=== PATIENT | female | born 1985 | race American Indian/Alaskan Native ===

== ENCOUNTER 2016-07-08 14:26 | Emergency (ER) | payer MEDICAID ==
[2016-07-08] MEDS ORDERED: ZOFRAN IV ONE (15:24)
--- NOTE | 2016-07-08 15:24 | Emergency Department Report ---
Chief Complaint: Nausea/Vomiting/Diarrhea Stated Complaint: /DEHYDRATION - HPI History of Present Illness: 7-week Patient c/o dehydration x 2 weeks. States sent here by her OB for IV fluids as she is having nausea, vomiting, weakness. Denies vaginal bleed. LMP 05/15/16 - Exam Vital Signs: Vital Signs 07/08/16 14:51 Temperature 98.8 F Pulse Rate 64 Respiratory 16 Rate O2 Sat by Pulse 100 Oximetry Physical Exam: General: NAD. MSE screening note: Focused history and physical exam performed. Due to findings the following was ordered: ED Medical Decision Making - Medical Decision Making Patient to see MD in main ED. ED Disposition for MSE Condition: Stable
[2016-07-08] MEDS ORDERED: NACL 0.9% 1000 ML 1,000 ML IV ONE (15:25)
[2016-07-08 15:53] LABS: Basophils % (Auto) 0.4 % (0.0-1.8); Eosinophils % (Auto) 1.9 % (0.0-4.3); Hematocrit 39.5 % (30.3-42.9); Hemoglobin 12.9 gm/dl (10.1-14.3); Mean Corpuscular HGB Conc 33 % (30-34); Mean Corpuscular Hemoglobin 27 pg (28-32); Mean Corpuscular Volume 83 fl (79-97); Platelet Count 256 K/mm3 (140-440); Red Blood Count 4.75 M/mm3 (3.65-5.03); Red Cell Distribution Width 13.2 % (13.2-15.2); White Blood Count 12.5 K/mm3 (4.5-11.0)
[2016-07-08 16:19] LABS: Alanine Aminotransferase 18 units/L (7-56); Albumin 4.2 g/dL (3.9-5); Albumin/Globulin Ratio 1.5 %; Alkaline Phosphatase 99 units/L (35-129); BUN/Creatinine Ratio 11.66; Bilirubin,Total 0.4 mg/dL (0.1-1.2); Blood Urea Nitrogen 7 mg/dL (7-17); Carbon Dioxide 26 mmol/L (22-30); Chloride 97.7 mmol/L (98-107); Glucose 96 mg/dL (65-100); Potassium 4.3 mmol/L (3.6-5.0); Sodium 135 mmol/L (137-145)
[2016-07-08 16:25] LABS: Anion Gap 16 mmol/L
[2016-07-09] MEDS ORDERED: NACL 0.9% 1000 ML 1,000 ML IV ONE (10:52)
[2016-07-09] MEDS ORDERED: ZOFRAN ONE (11:47)
--- NOTE | 2016-07-09 13:19 | Ultrasound Report ---
OB ultrasound: Endovaginal and transabdominal imaging demonstrates an anterior uterus measuring 6 x 6.7 x 12.8 cm. The myometrium is unremarkable. There is an endometrial sac containing a yolk sac as well as a pole. A pole length is 11.3 mm equivalent to a 7 week 2 day gestation. There is heart motion of 149 beats per minute. No intrauterine complication identified. The left ovary measures 3.6 cm and the right ovary measures 4.1 cm. Both contain numerous small follicles. No free fluid. Impressions: Viable, morocho IUP.
--- NOTE | 2016-07-09 14:04 | Emergency Department Report ---
HPI - General Chief Complaint: Nausea/Vomiting/Diarrhea Time Seen by Provider: 07/09/16 10:50 - HPI HPI: The patient is a 30-year-old female , EGA 7 weeks, who presents for evaluation of lightheadedness and vomiting. The patient states that for the past 2 weeks she has experienced progressive severe nausea and vomiting, worse in the mornings and associated with one to 2 days of lightheadedness, severe, exacerbated with position changes, improved with lying down and resting. The patient also reports mild cramping lower abdominal pain, on and off. The patient denies fever, chills, night sweats, diarrhea, blood in the stool, dark tarry stool, dysuria, hematuria, flank pain, vaginal bleeding, genital discharge , inability to pass flatus. She states that she has established care. ED Past Medical Hx - Past Medical History Previous Medical History?: No - Surgical History Past Surgical History?: Yes Hx Appendectomy: Yes (Age 9 years) - Social History Smoking Status: Never Smoker Substance Use Type: None - Medications Home Medications: Home Medications Medication Instructions Recorded Confirmed Last Taken Type Ibuprofen [Motrin] 600 mg PO Q4-6H PRN 09/29/14 09/29/14 1 Day Ago History Ibuprofen [Motrin] 600 mg PO Q8H PRN #30 tablet 09/29/14 Unknown Rx traMADol [Ultram] 50 mg PO Q6HR PRN #14 tablet 09/29/14 Unknown Rx Sulfamethoxazole/Trimethoprim 1 each PO BID #14 tablet 09/30/14 Unknown Rx [Bactrim Ds] Ondansetron [Zofran TAB] 4 mg PO Q8HR PRN #20 tablet 07/09/16 Unknown Rx ED Review of Systems ROS: Stated complaint: /DEHYDRATION Other details as noted in HPI Constitutional: denies: fever ENT: denies: throat or neck pain Respiratory: denies: cough, shortness of breath Cardiovascular: denies: chest pain Endocrine: denies unexplained weight loss or gain Gastrointestinal: reports abdominal pain, nausea, vomiting Genitourinary: denies: dysuria Musculoskeletal: denies: leg swelling Skin: denies: rash Neurological: denies: headache Hematological/Lymphatic: denies: easy bleeding or easy bruising Psych: denies sadness or hopelessness Physical Exam - Physical Exam Vital Signs: Vital Signs 07/08/16 07/09/1607/09/17 14:51 03:36 11:00 Temperature 98.8 F 97.8 F 98.1 F Pulse Rate 64 97 H 75 Respiratory 16 20 18 Rate Blood Pressure 104/65 107/68 [Right] O2 Sat by Pulse 100 100 100 Oximetry 07/09/16 12:13 Temperature Pulse Rate Respiratory 16 Rate Blood Pressure [Right] O2 Sat by Pulse 100 Oximetry Physical Exam: General: well-nourished, well-developed, no acute distress Head: Normocephalic, atraumatic Eyes: normal sclera ENT: Mucous membranes are pale and dry Neck: No neck stiffness, no cervical adenopathy Respiratory: Breath sounds equal bilaterally, no wheezing, rales, or rhonchi Cardio: S1 and S2 present, no murmurs, rubs, gallops, capillary refill is delayed Abdomen: Normoactive bowel sounds, soft abdomen, suprapubic tenderness to palpation present, no rigidity, no guarding or rebound tenderness Musc: No pitting edema Skin: No rash Neuro: no facial drooping, normal speech Psych: Normal affect ED Course Vital Signs 07/08/16 07/09/16 07/09/16 14:51 03:36 11:00 Temperature 98.8 F 97.8 F 98.1 F Pulse Rate 64 97 H 75 Respiratory 16 20 18 Rate Blood Pressure 104/65 107/68 [Right] O2 Sat by Pulse 100 100 100 Oximetry 07/09/16 12:13 Temperature Pulse Rate Respiratory 16 Rate Blood Pressure [Right] O2 Sat by Pulse 100 Oximetry ED Medical Decision Making - Lab Data Result diagrams: 07/08/16 15:45 07/08/16 15:45 - Medical Decision Making The patient was seen and examined by myself. The patient is placed on a lunchroom monitor and continuous pulse ox. On initial evaluation, the patient was found to be in no distress. Evaluation orders were placed. The patient is given 1 L normal saline fluid bolus for treatment of dehydration, a tablet of Tylenol for her pain, and IV Zofran for her nausea. Lab results reveal elevated hCG 62,000, and otherwise lab results were unremarkable. Ultrasound of the pelvis reveals a live intrauterine . The patient was reevaluated and reported that their symptoms were markedly improved. The patient is given a by mouth challenge which she tolerates without vomiting. The patient is stable for discharge with outpatient follow-up. The patient is given follow-up and return instructions. The patient expressed understanding and agreed with the plan. The patient is discharged in stable condition. Critical care attestation.: If time is entered above; I have spent that time in minutes in the direct care of this critically ill patient, excluding procedure time. ED Disposition Clinical Impression: Dehydration, Nausea and vomiting during Disposition: DISCHARGED TO HOME OR SELFCARE Is pt being admited?: No Does the pt Need Aspirin: No Condition: Stable Instructions: Acute Nausea and Vomiting (ED), Morning Sickness (ED) Referrals: CRISTAL GILMORE MD [Primary Care Provider] - 3-5 Days Time of Disposition: 12:15
[2016-07-09 14:06] VITALS: BP 110/68
[2016-07-09] MEDS ORDERED: TYLENOL PO ONE (14:06)
== END 2016-07-09 14:54 | disposition home or self-care (01) ==
LOC: ED 14:26
DX: O21.1 Hyperemesis gravidarum with metabolic disturbance (principal); R11.0 Nausea; Z90.49 Acquired absence of other specified parts of digestive tract; Z3A.01 Less than 8 weeks gestation of pregnancy
CPT/HCPCS: 36415; 76801; 76817; 80053; 83690; 84702; 85025; 96361; 96374; 99284; J2405; J7030

== ENCOUNTER 2016-12-21 12:51 | Outpatient (CLI) | payer MEDICAID ==
[2016-12-21] MEDS ORDERED: LACTATED RINGERS 500 ML IV ONE (13:02)
[2016-12-21 13:24] LABS: Bilirubin,Urine NEG (Negative); Blood,Urine NEG (Negative); Ketones,Urine NEG (Negative); Leukocyte Esterase,Urine NEG (Negative); Mucus,Urine FEW /HPF; Nitrite,Urine NEG (Negative); Protein,Urine <15 mg/dL mg/dL (Negative); Urobilinogen,Urine < 2.0 mg/dL (<2.0)
[2016-12-21 14:13] VITALS: BP 114/73
== END 2016-12-21 14:30 | disposition home or self-care (01) ==
LOC: TRG 12:51
PROVIDERS: ATTEND Obstetrics & Gynecology Gynecology
DX: Z34.93 Encounter for supervision of normal pregnancy, unspecified, third trimester (principal); Z3A.31 31 weeks gestation of pregnancy
CPT/HCPCS: 59025; 81001

== ENCOUNTER 2017-01-14 01:26 | Outpatient (CLI) | payer MEDICAID ==
[2017-01-14 01:39] VITALS: BP 124/80
[2017-01-14] MEDS ORDERED: LACTATED RINGERS 1,000 ML IV ONE (02:06)
[2017-01-14] MEDS ORDERED: LACTATED RINGERS 1,000 ML ONE (02:06)
[2017-01-14 02:55] LABS: Bacteria,Urine 4+ /HPF (Negative); Bilirubin,Urine NEG (Negative); Blood,Urine NEG (Negative); Ketones,Urine NEG (Negative); Leukocyte Esterase,Urine SM (Negative); Nitrite,Urine NEG (Negative); Protein,Urine <15 mg/dL mg/dL (Negative); Urobilinogen,Urine < 2.0 mg/dL (<2.0)
[2017-01-14] MEDS ORDERED: BRETHINE SUB-Q ONE (03:49)
== END 2017-01-14 05:00 | disposition home or self-care (01) ==
LOC: TRG 01:26
PROVIDERS: ATTEND Obstetrics & Gynecology
DX: O47.03 False labor before 37 completed weeks of gestation, third trimester (principal); Z3A.34 34 weeks gestation of pregnancy
CPT/HCPCS: 81001; 96360; 96361; J3105; J7120

== ENCOUNTER 2017-02-07 21:00 | Outpatient (CLI) | payer MEDICAID ==
[2017-02-10 01:23] VITALS: BP 129/78
== END 2017-02-07 22:03 | disposition home or self-care (01) ==
LOC: TRG 21:00
PROVIDERS: ATTEND Obstetrics & Gynecology
DX: O47.1 False labor at or after 37 completed weeks of gestation (principal); Z3A.38 38 weeks gestation of pregnancy

== ENCOUNTER 2017-02-09 22:13 | Observation (INO) | payer MEDICAID ==
[2017-02-10] MEDS ORDERED: LACTATED RINGERS 1,000 ML ONE (02:49)
[2017-02-10] MEDS ORDERED: LACTATED RINGERS 1,000 ML IV SCH (03:00)
[2017-02-10] MEDS ORDERED: VISTARIL PO ONE (04:43)
[2017-02-17 04:40] VITALS: BP 159/78
== END 2017-02-10 04:58 | disposition home or self-care (01) ==
LOC: TRG 22:13 → LD 02-10 02:21 → INTOOBSV 02-10 02:21
PROVIDERS: ADMIT Obstetrics & Gynecology Gynecology; ATTEND Obstetrics & Gynecology Gynecology
DX: O62.9 Abnormality of forces of labor, unspecified (principal); Z3A.38 38 weeks gestation of pregnancy
CPT/HCPCS: G0378; J7120; 96360; Q0177

== ENCOUNTER 2017-02-15 14:51 | Inpatient (IN) | payer MEDICAID ==
[2017-02-15 16:14] LABS: Hematocrit 29.8 % (30.3-42.9); Hemoglobin 9.5 gm/dl (10.1-14.3); Mean Corpuscular HGB Conc 32 % (30-34); Mean Corpuscular Volume 76 fl (79-97); Platelet Count 176 K/mm3 (140-440); Red Blood Count 3.91 M/mm3 (3.65-5.03); Red Cell Distribution Width 15.6 % (13.2-15.2); White Blood Count 8.2 K/mm3 (4.5-11.0)
[2017-02-15 16:26] LABS: Mean Corpuscular Hemoglobin 24 pg (28-32)
[2017-02-15 16:37] LABS: Bacteria,Urine 1+ /HPF (Negative); Bilirubin,Urine NEG (Negative); Blood,Urine SM (Negative); Ketones,Urine NEG (Negative); Leukocyte Esterase,Urine NEG (Negative); Mucus,Urine FEW /HPF; Nitrite,Urine NEG (Negative); RBC,Urine < 1.0 /HPF (0.0-6.0); Urobilinogen,Urine < 2.0 mg/dL (<2.0); WBC,Urine < 1.0 /HPF (0.0-6.0)
[2017-02-15 16:38] LABS: Alanine Aminotransferase 48 units/L (7-56); Lactate Dehydrogenase 221 units/L (91-180); Uric Acid 6.3 mg/dL (3.5-7.6)
[2017-02-15] MEDS ORDERED: STADOL IV PRN (17:12)
[2017-02-15] MEDS ORDERED: BRETHINE SUB-Q PRN (17:12)
[2017-02-15] MEDS ORDERED: NARCAN 0.4 MG/1 ML IV PRN (17:12)
[2017-02-15] MEDS ORDERED: POLYCILLIN/NS 2 GM/100 ML 2 GM/100 ML BAG IV ONE (17:12)
[2017-02-15] MEDS ORDERED: PHENERGAN PO PRN (17:12)
[2017-02-15] MEDS ORDERED: ePHEDrine SULFATE IV PRN (17:12)
[2017-02-15] MEDS ORDERED: BRETHINE IVP PRN (17:12)
[2017-02-15] MEDS ORDERED: ZOFRAN IV PRN (17:12)
[2017-02-15] MEDS ORDERED: SUBLIMAZE IV PRN (17:12)
[2017-02-15] MEDS ORDERED: MINERAL OIL PO PRN (17:12)
[2017-02-15] MEDS ORDERED: XYLOCAINE 2% INFILTRATI ONE (17:12)
--- NOTE | 2017-02-15 17:21 | History and Physical Report ---
History of Present Illness Date of examination: 02/15/17 Date of admission: 02/15/17 14:52 Chief complaint: Early labor History of present illness: Pt is a 31yo BF EDC 02/19/17; EGA 39 3/7 weeks sent to L&D for evaluation of elevated BP's and dilated 4-5/70/V -2 She received care at [facility] since 6 weeks and course has been unremarkable. records are available, and GBS is positive. Past History Past Medical History: no pertinent history Past Surgical History: no surgical history SET [employer] History: herpes Family/Genetic History: none Social history: no significant social history, single - Obstetrical History Expected Date of Delivery: 02/19/17 Actual Gestation: 39 Week(s) 4 Day(s) : 2 Medications and Allergies Allergies Allergy/AdvReac Type Severity Reaction Status Date / Time No Known Allergies Allergy Verified 09/29/14 21:51 Home Medications Medication Instructions Recorded Confirmed Last Taken Type No Known Home Medications [No 02/07/17 02/07/17 Unknown History Reported Home Medications] Active Meds: Active Medications Butorphanol Tartrate (Stadol) 2 mg IV Q2H PRN PRN Reason: Pain , Severe (7-10) Ephedrine Sulfate (Ephedrine Sulfate) 10 mg IV Q2M PRN PRN Reason: Hypotension Stop: 02/15/17 17:17 Fentanyl (Sublimaze) 100 mcg IV Q2H PRN PRN Reason: Labor Pain Ampicillin Sodium (Polycillin/Ns 1 Gm/50 Ml) 1 gm in 50 mls @ 100 mls/hr IV Q4HR BRANDIE PRN Reason: Protocol Ampicillin Sodium (Polycillin/Ns 2 Gm/100 Ml) 2 gm in 100 mls @ 100 mls/hr IV ONCE ONE PRN Reason: Protocol Stop: 02/15/17 18:11 Lactated Ringer's (Lactated Ringers) 1,000 mls @ 125 mls/hr IV DIRECT BRANDIE Oxytocin/Sodium Chloride (Pitocin/Ns 20 Unit/1000ml Drip) 20 units in 1,000 mls @ 125 mls/hr IV DIRECT BRANDIE Oxytocin/Sodium Chloride (Pitocin/Ns 30 Unit/500ml) 30 units in 500 mls @ 1 mls /hr IV TITR BRANDIE; 1 MILLIUNITS/MIN PRN Reason: Protocol Oxytocin/Sodium Chloride (Pitocin/Ns 30 Unit/500ml) 30 units in 500 mls @ 4 mls /hr IV TITR BRANDIE PRN Reason: Protocol Lidocaine (Xylocaine 2%) 20 ml INFILTRATI ONCE ONE Stop: 02/15/17 17:13 Mineral Oil (Mineral Oil) 30 ml PO QHS PRN PRN Reason: Constipation Naloxone HCl (Narcan 0.4 Mg/1 Ml) 0.1 mg IV Q2MIN PRN PRN Reason: Res Rate </= 8 or 02 SAT < 92% Ondansetron HCl (Zofran) 4 mg IV Q8H PRN PRN Reason: Nausea And Vomiting Promethazine HCl (Phenergan) 25 mg PO Q6H PRN PRN Reason: Nausea And Vomiting Terbutaline Sulfate (Brethine) 0.25 mg SUB-Q ONCE PRN PRN Reason: Hyperstimulation/Hypertonicity Stop: 02/15/17 17:13 Terbutaline Sulfate (Brethine) 0.25 mg IVP ONCE PRN PRN Reason: Hyperstimulation/Hypertonicity Stop: 02/15/17 17:13 Review of Systems All systems: negative - Vital Signs Vital signs: Vital Signs Pulse BP Pulse Ox 81 142/72 98 02/15/17 15:23 02/15/17 15:23 02/15/17 15:23 Temp Pulse Resp BP Pulse Ox 74 134/68 98 02/15/17 16:38 02/15/17 16:38 02/15/17 15:38 - Physical Exam Breasts: Positive: deferred Cardiovascular: Regular rate Lungs: Positive: Clear to auscultation Abdomen: Positive: normal appearance Genitourinary (Female): Positive: normal external genitalia Vagina: Positive: normal moisture Uterus: Positive: enlarged Extremities: Positive: normal - Obstetrical FHR: category 1 Uterine Contraction Monitor Mode: External Cervical Dilatation: 4.5 (per nurse) Cervical Effacement Percentage: 70 (per nurse) station: -2 Uterine Contraction Pattern: Irregular Uterine Tone Measurement Phase: Contraction Uterine Contraction Intensity: Mild Results Result Diagrams: 02/15/17 15:10 02/15/17 15:10 Abnormal lab results 02/15/17 02/15/17 Range/Units 15:10 15:10 Hgb 9.5 L (10.1-14.3) gm/dl Hct 29.8 L (30.3-42.9) % MCV 76 L (79-97) fl MCH 24 L (28-32) pg RDW 15.6 H (13.2-15.2) % Creatinine 0.6 L (0.7-1.2) mg/dL Lactate Dehydrogenase 221 H (91-180) units/L All other labs normal. Assessment and Plan - Patient Problems (1) 39 weeks gestation of Onset Date: 02/15/17 Current Visit: Yes Status: Acute Plan to address problem: A: IUP @ 39 3/7 weeks in labor GBS Positive P: Admit to L&D for expectant vaginal delivery IV Ampicillin
[2017-02-15] MEDS ORDERED: PITOCin/NS 30 UNIT/500ML 30 UNITS/500 ML BAG IV SCH ×2 (18:00)
[2017-02-15] MEDS ORDERED: PITOCin/NS 20 UNIT/1000ML DRIP 20 UNITS/1,000 ML BAG IV SCH (18:00)
[2017-02-15] MEDS: LACTATED RINGERS 1,000 ML IV SCH (18:03)
[2017-02-15] MEDS: POLYCILLIN/NS 1 GM/50 ML 1 GM/50 ML BAG IV SCH (22:46)
[2017-02-16] MEDS: LACTATED RINGERS 1,000 ML IV SCH ×3 (01:43→21:31)
[2017-02-16] MEDS ORDERED: ePHEDrine SULFATE ONE (02:05)
[2017-02-16] MEDS: POLYCILLIN/NS 1 GM/50 ML 1 GM/50 ML BAG IV SCH ×5 (02:09→18:55)
[2017-02-16] MEDS ORDERED: ePHEDrine SULFATE IV PRN (03:02)
--- NOTE | 2017-02-16 03:02 | Anesthesia Consultation ---
Anesthesia Consult and Med Hx Date of service: 02/16/17 - Airway Anesthetic Teeth Evaluation: Good ROM Head & Neck: Adequate Mental/Hyoid Distance: Adequate Intubation Access Assessment: Probably Good - Pre-Operative Health Status ASA Pre-Surgery Classification: ASA2, Emergency Proposed Anesthetic Plan: Epidural, Spinal - Pulmonary Hx Asthma: No COPD: No Hx Pneumonia: No - Cardiovascular System Hx Hypertension: No - Central Nervous System Hx Seizures: No Hx Psychiatric Problems: No - Endocrine Hx Renal Disease: No Hx End Stage Renal Disease: No Hx Hypothyroidism: No Hx Hyperthyroidism: No - Hematic Hx Anemia: No Hx Sickle Cell Disease: No - Other Systems Hx Alcohol Use: No
[2017-02-16] MEDS: fentaNYL-BUPIV 2 MCG/ML-0.125% 200 MCG/100 ML BAG EPIDURAL SCH ×3 (03:33→18:55)
[2017-02-16] MEDS ORDERED: BENADRYL IV PRN (10:00)
--- NOTE | 2017-02-16 12:04 | Progress Note ---
Assessment and Plan - Patient Problems (1) 39 weeks gestation of Onset Date: 02/15/17 Current Visit: Yes Status: Acute Plan to address problem: A: IUP @ 39 4/7 weeks in labor GBS Positive P: Continue pitocin augmentation for expectant vaginal delivery AROM - clear fluid IV Ampicillin Subjective - Subjective Date of service: 02/16/17 Principal diagnosis: IUP @ 39 4/7 weeks Interval history: Pt is presently on pitocin 28mu/min and ye q 3-5 mins with epidural in place. No complaints. Patient reports: loss of fluid, movement normal, contractions, no new complaints, no vaginal bleeding Objective - Vital Signs Vital Signs: Vital Signs - 12hr 02/16/17 02/16/17 02/16/17 00:04 00:09 00:14 Temperature Pulse Rate 86 80 69 Respiratory Rate Blood Pressure O2 Sat by Pulse 99 100 100 Oximetry 02/16/17 02/16/17 02/16/17 00:19 00:24 00:29 Temperature Pulse Rate 66 74 74 Respiratory Rate Blood Pressure O2 Sat by Pulse 99 99 100 Oximetry 02/16/17 02/16/17 02/16/17 00:33 00:34 00:39 Temperature Pulse Rate 85 87 72 Respiratory Rate Blood Pressure O2 Sat by Pulse 67 L 100 99 Oximetry 02/16/17 02/16/17 02/16/17 00:44 00:49 00:54 Temperature Pulse Rate 72 71 69 Respiratory Rate Blood Pressure O2 Sat by Pulse 100 98 100 Oximetry 02/16/17 02/16/17 02/16/17 00:59 01:04 01:09 Temperature Pulse Rate 79 71 71 Respiratory Rate Blood Pressure O2 Sat by Pulse 98 100 99 Oximetry 02/16/17 02/16/17 02/16/17 01:13 01:14 01:19 Temperature Pulse Rate 75 73 98 H Respiratory Rate Blood Pressure O2 Sat by Pulse 93 100 98 Oximetry 02/16/17 02/16/17 02/16/17 01:24 01:29 01:34 Temperature Pulse Rate 82 69 69 Respiratory Rate Blood Pressure O2 Sat by Pulse 99 99 99 Oximetry 02/16/17 02/16/17 02/16/17 01:39 01:44 01:49 Temperature Pulse Rate 70 73 67 Respiratory Rate Blood Pressure O2 Sat by Pulse 98 100 98 Oximetry 02/16/17 02/16/17 02/16/17 01:54 02:00 02:05 Temperature Pulse Rate 75 83 84 Respiratory Rate Blood Pressure O2 Sat by Pulse 100 98 100 Oximetry 02/16/17 02/16/17 02/16/17 02:10 02:15 02:20 Temperature Pulse Rate 73 74 64 Respiratory Rate Blood Pressure O2 Sat by Pulse 100 100 100 Oximetry 02/16/17 02/16/17 02/16/17 02:25 02:30 02:35 Temperature Pulse Rate 71 72 73 Respiratory Rate Blood Pressure O2 Sat by Pulse 98 98 100 Oximetry 02/16/17 02/16/17 02/16/17 02:37 02:39 02:40 Temperature Pulse Rate 72 80 74 Respiratory Rate Blood Pressure 122/76 132/84 O2 Sat by Pulse 75 L 100 Oximetry 02/16/17 02/16/17 02/16/17 02:42 02:44 02:45 Temperature Pulse Rate 65 73 73 Respiratory Rate Blood Pressure 126/72 144/81 O2 Sat by Pulse 89 Oximetry 02/16/17 02/16/17 02/16/17 02:46 02:48 02:50 Temperature Pulse Rate 74 72 77 Respiratory Rate Blood Pressure 124/71 130/71 130/72 O2 Sat by Pulse 100 Oximetry 02/16/17 02/16/17 02/16/17 02:52 02:54 02:56 Temperature Pulse Rate 85 75 72 Respiratory Rate Blood Pressure 133/65 118/64 120/64 O2 Sat by Pulse Oximetry 02/16/17 02/16/17 02/16/17 02:58 03:01 03:02 Temperature Pulse Rate 71 81 81 Respiratory Rate Blood Pressure 119/65 O2 Sat by Pulse 71 L 79 L Oximetry 02/16/17 02/16/17 02/16/17 03:08 03:09 03:11 Temperature Pulse Rate 110 H 98 H 81 Respiratory Rate Blood Pressure 145/76 O2 Sat by Pulse 100 91 Oximetry 02/16/17 02/16/17 02/16/17 03:13 03:16 03:18 Temperature Pulse Rate 83 94 H 76 Respiratory Rate Blood Pressure O2 Sat by Pulse 100 93 100 Oximetry 02/16/17 02/16/17 02/16/17 03:23 03:28 03:30 Temperature Pulse Rate 69 72 75 Respiratory Rate Blood Pressure 127/69 O2 Sat by Pulse 100 100 Oximetry 02/16/17 02/16/17 02/16/17 03:32 03:33 03:38 Temperature Pulse Rate 25 L 102 H 85 Respiratory Rate Blood Pressure O2 Sat by Pulse 69 L 99 100 Oximetry 02/16/17 02/16/17 02/16/17 03:43 03:45 03:48 Temperature Pulse Rate 76 75 78 Respiratory Rate Blood Pressure 114/79 O2 Sat by Pulse 100 100 Oximetry 02/16/17 02/16/17 02/16/17 03:53 03:58 03:59 Temperature Pulse Rate 72 81 84 Respiratory Rate Blood Pressure 109/57 O2 Sat by Pulse 100 100 Oximetry 02/16/17 02/16/17 02/16/17 04:03 04:08 04:13 Temperature Pulse Rate 81 85 82 Respiratory Rate Blood Pressure O2 Sat by Pulse 100 99 98 Oximetry 02/16/17 02/16/17 02/16/17 04:18 04:23 04:28 Temperature Pulse Rate 80 83 87 Respiratory Rate Blood Pressure O2 Sat by Pulse 97 97 97 Oximetry 02/16/17 02/16/17 02/16/17 04:33 04:38 04:43 Temperature Pulse Rate 88 81 75 Respiratory Rate Blood Pressure O2 Sat by Pulse 98 96 96 Oximetry 02/16/17 02/16/17 02/16/17 04:44 04:48 04:49 Temperature Pulse Rate 81 70 77 Respiratory Rate Blood Pressure 103/55 O2 Sat by Pulse 94 96 94 Oximetry 02/16/17 02/16/17 02/16/17 04:53 04:58 05:03 Temperature Pulse Rate 78 79 72 Respiratory Rate Blood Pressure O2 Sat by Pulse 95 93 96 Oximetry 02/16/17 02/16/17 02/16/17 05:08 05:13 05:14 Temperature Pulse Rate 78 70 72 Respiratory Rate Blood Pressure O2 Sat by Pulse 94 94 Oximetry 02/16/17 02/16/17 02/16/17 05:18 05:23 05:26 Temperature Pulse Rate 70 71 75 Respiratory Rate Blood Pressure O2 Sat by Pulse 94 94 94 Oximetry 02/16/17 02/16/17 02/16/17 05:28 05:33 05:38 Temperature Pulse Rate 77 81 82 Respiratory Rate Blood Pressure O2 Sat by Pulse 95 94 96 Oximetry 02/16/17 02/16/17 02/16/17 05:40 05:43 05:48 Temperature Pulse Rate 84 76 73 Respiratory Rate Blood Pressure 135/61 O2 Sat by Pulse 94 97 98 Oximetry 02/16/17 02/16/17 02/16/17 05:53 05:58 06:03 Temperature Pulse Rate 72 78 68 Respiratory Rate Blood Pressure O2 Sat by Pulse 96 96 95 Oximetry 02/16/17 02/16/17 02/16/17 06:08 06:13 06:18 Temperature Pulse Rate 60 72 63 Respiratory Rate Blood Pressure 122/76 O2 Sat by Pulse 96 97 97 Oximetry 02/16/17 02/16/17 02/16/17 06:25 06:30 06:35 Temperature Pulse Rate 91 H 78 74 Respiratory Rate Blood Pressure O2 Sat by Pulse 100 100 99 Oximetry 02/16/17 02/16/17 02/16/17 06:38 06:40 06:44 Temperature Pulse Rate 51 L 79 71 Respiratory Rate Blood Pressure 139/81 O2 Sat by Pulse 86 99 Oximetry 02/16/17 02/16/17 02/16/17 06:45 06:50 06:55 Temperature Pulse Rate 75 65 105 H Respiratory Rate Blood Pressure O2 Sat by Pulse 100 100 83 L Oximetry 02/16/17 02/16/17 02/16/17 07:00 07:05 07:10 Temperature Pulse Rate 82 77 77 Respiratory Rate Blood Pressure O2 Sat by Pulse 98 97 98 Oximetry 02/16/17 02/16/17 02/16/17 07:13 07:15 07:20 Temperature Pulse Rate 70 69 75 Respiratory Rate Blood Pressure 135/66 O2 Sat by Pulse 97 100 Oximetry 02/16/17 02/16/17 02/16/17 07:23 07:25 07:30 Temperature Pulse Rate 81 84 95 H Respiratory Rate Blood Pressure O2 Sat by Pulse 93 86 99 Oximetry 02/16/17 02/16/17 02/16/17 07:35 07:40 07:43 Temperature Pulse Rate 86 84 88 Respiratory Rate Blood Pressure O2 Sat by Pulse 99 99 85 Oximetry 02/16/17 02/16/17 02/16/17 07:45 07:50 07:55 Temperature Pulse Rate 78 70 69 Respiratory Rate Blood Pressure 145/80 O2 Sat by Pulse 100 98 98 Oximetry 02/16/17 02/16/17 02/16/17 08:00 08:05 08:10 Temperature Pulse Rate 75 69 75 Respiratory Rate Blood Pressure O2 Sat by Pulse 96 96 95 Oximetry 02/16/17 02/16/17 02/16/17 08:14 08:15 08:20 Temperature Pulse Rate 78 82 72 Respiratory Rate Blood Pressure 131/75 O2 Sat by Pulse 97 96 Oximetry 02/16/17 02/16/17 02/16/17 08:24 08:25 08:30 Temperature Pulse Rate 79 79 72 Respiratory Rate Blood Pressure O2 Sat by Pulse 92 96 93 Oximetry 02/16/17 02/16/17 02/16/17 08:35 08:40 08:43 Temperature Pulse Rate 75 79 70 Respiratory Rate Blood Pressure 131/76 O2 Sat by Pulse 96 96 Oximetry 02/16/17 02/16/17 02/16/17 08:45 08:46 08:50 Temperature Pulse Rate 74 77 76 Respiratory Rate Blood Pressure O2 Sat by Pulse 95 94 95 Oximetry 02/16/17 02/16/17 02/16/17 08:51 08:55 08:56 Temperature Pulse Rate 78 76 76 Respiratory Rate Blood Pressure O2 Sat by Pulse 94 95 94 Oximetry 02/16/17 02/16/17 02/16/17 09:00 09:01 09:04 Temperature Pulse Rate 65 70 70 Respiratory Rate Blood Pressure 122/73 O2 Sat by Pulse 95 94 Oximetry 02/16/17 02/16/17 02/16/17 09:06 09:11 09:16 Temperature 97.7 F Pulse Rate 83 69 74 Respiratory 20 Rate Blood Pressure 122/73 O2 Sat by Pulse 96 98 98 Oximetry 02/16/17 02/16/17 09:18 09:26 Temperature Pulse Rate 83 101 H Respiratory Rate Blood Pressure O2 Sat by Pulse 94 87 Oximetry - Exam Cardiovascular: Regular rate Abdomen: Present: normal appearance, soft Uterus: Present: normal FHR: category 1 Uterine Contraction Monitor Mode: External Cervical Dilatation: 4 Cervical Effacement Percentage: 50 station: -2 Uterine Contraction Pattern: Regular Uterine Tone Measurement Phase: Contraction Uterine Contraction Intensity: Moderate - Labs Labs: Abnormal Labs 02/15/17 02/15/17 15:10 15:10 Hgb 9.5 L Hct 29.8 L MCV 76 L MCH 24 L RDW 15.6 H Creatinine 0.6 L Lactate Dehydrogenase 221 H Laboratory Results - last 24 hr 02/15/17 02/15/17 02/15/17 15:10 15:10 15:10 WBC 8.2 RBC 3.91 Hgb 9.5 L Hct 29.8 L MCV 76 L MCH 24 L MCHC 32 RDW 15.6 H Plt Count 176 Creatinine 0.6 L Estimated GFR > 60 Uric Acid 6.3 AST 34 ALT 48 Lactate Dehydrogenase 221 H Urine Color Straw Urine Turbidity Clear Urine pH 7.0 Ur Specific [place] 1.004 Urine Protein 30 mg/dl Urine Glucose (UA) Neg Urine Ketones Neg Urine Blood Sm Urine Nitrite Neg Urine Bilirubin Neg Urine Urobilinogen < 2.0 Ur Leukocyte Esterase Neg Urine WBC (Auto) < 1.0 Urine RBC (Auto) < 1.0 U Epithel Cells (Auto) < 1.0 Urine Bacteria (Auto) 1+ Urine Mucus Few Blood Type Antibody Screen 02/15/17 15:10 WBC RBC Hgb Hct MCV MCH MCHC RDW Plt Count Creatinine Estimated GFR Uric Acid AST ALT Lactate Dehydrogenase Urine Color Urine Turbidity Urine pH Ur Specific [place] Urine Protein Urine Glucose (UA) Urine Ketones Urine Blood Urine Nitrite Urine Bilirubin Urine Urobilinogen Ur Leukocyte Esterase Urine WBC (Auto) Urine RBC (Auto) U Epithel Cells (Auto) Urine Bacteria (Auto) Urine Mucus Blood Type O POSITIVE Antibody Screen Negative
--- NOTE | 2017-02-16 18:50 | Progress Note ---
Assessment and Plan - Patient Problems (1) 39 weeks gestation of Onset Date: 02/15/17 Current Visit: Yes Status: Acute Plan to address problem: A: IUP @ 39 3/7 weeks in labor GBS Positive P: Continue pitocin augmentation of labor IV Ampicillin Subjective - Subjective Date of service: 02/16/17 Principal diagnosis: IUP @ 39 4/7 weeks Interval history: Pt is currently on pitocin 28mu/min and ye q 2-4 mins [address] epidural in place. Patient reports: loss of fluid (AROM - clear fluid), movement normal, contractions, no new complaints, no vaginal bleeding Objective - Vital Signs Vital Signs: Vital Signs - 12hr 02/16/17 02/16/17 02/16/17 06:50 06:55 07:00 Temperature Pulse Rate 65 105 H 82 Respiratory Rate Blood Pressure O2 Sat by Pulse 100 83 L 98 Oximetry 02/16/17 02/16/17 02/16/17 07:05 07:10 07:13 Temperature Pulse Rate 77 77 70 Respiratory Rate Blood Pressure 135/66 O2 Sat by Pulse 97 98 Oximetry 02/16/17 02/16/17 02/16/17 07:15 07:20 07:23 Temperature Pulse Rate 69 75 81 Respiratory Rate Blood Pressure O2 Sat by Pulse 97 100 93 Oximetry 02/16/17 02/16/17 02/16/17 07:25 07:30 07:35 Temperature Pulse Rate 84 95 H 86 Respiratory Rate Blood Pressure O2 Sat by Pulse 86 99 99 Oximetry 02/16/17 02/16/17 02/16/17 07:40 07:43 07:45 Temperature Pulse Rate 84 88 78 Respiratory Rate Blood Pressure 145/80 O2 Sat by Pulse 99 85 100 Oximetry 02/16/17 02/16/17 02/16/17 07:50 07:55 08:00 Temperature Pulse Rate 70 69 75 Respiratory Rate Blood Pressure O2 Sat by Pulse 98 98 96 Oximetry 02/16/17 02/16/17 02/16/17 08:05 08:10 08:14 Temperature Pulse Rate 69 75 78 Respiratory Rate Blood Pressure 131/75 O2 Sat by Pulse 96 95 Oximetry 02/16/17 02/16/17 02/16/17 08:15 08:20 08:24 Temperature Pulse Rate 82 72 79 Respiratory Rate Blood Pressure O2 Sat by Pulse 97 96 92 Oximetry 08/02/16/17 02/16/17 08:25 08:30 08:35 Temperature Pulse Rate 79 72 75 Respiratory Rate Blood Pressure O2 Sat by Pulse 96 93 96 Oximetry 02/16/17 02/16/17 02/16/17 08:40 08:43 08:45 Temperature Pulse Rate 79 70 74 Respiratory Rate Blood Pressure 131/76 O2 Sat by Pulse 96 95 Oximetry 02/16/17 02/16/17 02/16/17 08:46 08:50 08:51 Temperature Pulse Rate 77 76 78 Respiratory Rate Blood Pressure O2 Sat by Pulse 94 95 94 Oximetry 02/16/17 02/16/17 02/16/17 08:55 08:56 09:00 Temperature Pulse Rate 76 76 65 Respiratory Rate Blood Pressure O2 Sat by Pulse 95 94 95 Oximetry 02/16/17 02/16/17 02/16/17 09:01 09:04 09:06 Temperature 97.7 F Pulse Rate 70 70 83 Respiratory 20 Rate Blood Pressure 122/73 122/73 O2 Sat by Pulse 94 96 Oximetry 02/16/17 02/16/17 02/16/17 09:11 09:16 09:18 Temperature Pulse Rate 69 74 83 Respiratory Rate Blood Pressure O2 Sat by Pulse 98 98 94 Oximetry 02/16/17 02/16/17 09:26 16:05 Temperature 98.5 F Pulse Rate 101 H 70 Respiratory 18 Rate Blood Pressure 144/86 O2 Sat by Pulse 87 99 Oximetry - Exam FHR: category 1 Uterine Contraction Monitor Mode: Internal Cervical Dilatation: 5 Cervical Effacement Percentage: 70 station: -2 Uterine Contraction Pattern: Regular Uterine Tone Measurement Phase: Contraction Uterine Contraction Intensity: Moderate - Labs Labs: Abnormal Labs 02/15/17 02/15/17 15:10 15:10 Hgb 9.5 L Hct 29.8 L MCV 76 L MCH 24 L RDW 15.6 H Creatinine 0.6 L Lactate Dehydrogenase 221 H Laboratory Results - last 24 hr 02/15/17 15:10 Blood Type O POSITIVE Antibody Screen Negative
[2017-02-16] MEDS ORDERED: XYLOCAINE MPF 2% ONE (19:28)
--- NOTE | 2017-02-16 19:39 | Progress Note ---
Subjective Date of service: 02/16/17 (10 cc 2% lidocaine MPF via epidural @ 19:32) Principal diagnosis: IUP @ 39 4/7 weeks Objective - Constitutional Vitals: Vital Signs - 12hr 02/16/17 02/16/17 02/16/17 07:40 07:43 07:45 Temperature Pulse Rate 84 88 78 Respiratory Rate Blood Pressure 145/80 O2 Sat by Pulse 99 85 100 Oximetry 02/16/17 02/16/17 02/16/17 07:50 07:55 08:00 Temperature Pulse Rate 70 69 75 Respiratory Rate Blood Pressure O2 Sat by Pulse 98 98 96 Oximetry 02/16/17 02/16/17 02/16/17 08:05 08:10 08:14 Temperature Pulse Rate 69 75 78 Respiratory Rate Blood Pressure 131/75 O2 Sat by Pulse 96 95 Oximetry 02/16/17 02/16/17 02/16/17 08:15 08:20 08:24 Temperature Pulse Rate 82 72 79 Respiratory Rate Blood Pressure O2 Sat by Pulse 97 96 92 Oximetry 02/16/17 02/16/17 02/16/17 08:25 08:30 08:35 Temperature Pulse Rate 79 72 75 Respiratory Rate Blood Pressure O2 Sat by Pulse 96 93 96 Oximetry 02/16/17 02/16/17 02/16/17 08:40 08:43 08:45 Temperature Pulse Rate 79 70 74 Respiratory Rate Blood Pressure 131/76 O2 Sat by Pulse 96 95 Oximetry 02/16/17 02/16/17 02/16/17 08:46 08:50 08:51 Temperature Pulse Rate 77 76 78 Respiratory Rate Blood Pressure O2 Sat by Pulse 94 95 94 Oximetry 02/16/17 02/16/17 02/16/17 08:55 08:56 09:00 Temperature Pulse Rate 76 76 65 Respiratory Rate Blood Pressure O2 Sat by Pulse 95 94 95 Oximetry 02/16/17 02/16/17 02/16/17 09:01 09:04 09:06 Temperature 97.7 F Pulse Rate 70 70 83 Respiratory 20 Rate Blood Pressure 122/73 122/73 O2 Sat by Pulse 94 96 Oximetry 02/16/17 02/16/17 02/16/17 09:11 09:16 09:18 Temperature Pulse Rate 69 74 83 Respiratory Rate Blood Pressure O2 Sat by Pulse 98 98 94 Oximetry 02/16/17 02/16/17 02/16/17 09:26 16:05 19:15 Temperature 98.5 F 98.4 F Pulse Rate 101 H 70 70 Respiratory 18 18 Rate Blood Pressure 144/86 144/86 O2 Sat by Pulse 87 99 99 Oximetry - Labs CBC & Chem 7: 02/15/17 15:10 02/15/17 15:10
[2017-02-16] MEDS ORDERED: XYLOCAINE 2% INFILTRATI ONE (21:59)
[2017-02-17] MEDS: POLYCILLIN/NS 1 GM/50 ML 1 GM/50 ML BAG IV SCH (00:24)
--- NOTE | 2017-02-17 03:02 | Procedure Note ---
OB Delivery Note - Delivery Date of Delivery: 02/17/17 Surgeon: CRISTAL GILMORE Estimated blood loss: 200cc - Vaginal Delivery presentation: vertex Delivery position: OA Intrapartum events: PROM->1hr before delivery Delivery induction: oxytocin Delivery augmentation: rupture of membranes, pitocin Delivery monitor: external FHT, internal uterine Route of delivery: Delivery placenta: spontaneous Delivery cord: nuchal cord (x1), 3 umbilical vessels Episiotomy: none Delivery laceration: none Anesthesia: epidural Delivery comments: Infant delivered OA, tight nuchal cord x 1 reduced, and cord clamped and cut when baby placed on Mom's chest for [id number] bonding. Peds/RT called for poor respiratory effort. - A at 1 minute: 4 at 5 minutes: 8 Gender: Female (4020gms)
[2017-02-17] MEDS ORDERED: BENADRYL PO PRN (03:06)
[2017-02-17] MEDS ORDERED: ZOFRAN IV PRN (03:06)
[2017-02-17] MEDS ORDERED: LANSINOH TP PRN (03:06)
[2017-02-17] MEDS ORDERED: DULCOLAX PR PRN (03:06)
[2017-02-17] MEDS ORDERED: PHENERGAN PR PRN (03:06)
[2017-02-17] MEDS ORDERED: TUCKS PAD TP PRN (03:06)
[2017-02-17] MEDS ORDERED: TYLENOL PO PRN (03:06)
[2017-02-17] MEDS ORDERED: MILK OF MAGNESIA PO PRN (03:06)
[2017-02-17] MEDS ORDERED: PHENERGAN PO PRN (03:06)
[2017-02-17 03:10] LABS: ISTAT Base Excess -11; ISTAT HCO3 17.4; ISTAT PCO2 44.8 (35-45); ISTAT PH 7.197 (7.35-7.45); ISTAT PO2 23 (80-105); ISTAT SO2 28; ISTAT TCO2 19
[2017-02-17] MEDS ORDERED: SODIUM CHLORIDE FLUSH SYRINGE 10 ML IV PRN (04:00)
[2017-02-17] MEDS ORDERED: PITOCin/NS 20 UNIT/1000ML DRIP 20 UNITS/1,000 ML BAG IV SCH (04:00)
[2017-02-17] MEDS: MOTRIN PO SCH ×5 (07:08→18:46)
[2017-02-17] MEDS: NORCO 5/325 PO PRN ×3 (07:09→20:09)
[2017-02-17] MEDS ORDERED: FEOSOL PO SCH (10:00)
[2017-02-17] MEDS: COLACE PO SCH ×2 (13:35→22:38)
[2017-02-17] MEDS: PRENATAL VITAMIN PO SCH (13:41)
[2017-02-17 17:07] LABS: Hematocrit 28.4 % (30.3-42.9); Hemoglobin 8.8 gm/dl (10.1-14.3)
[2017-02-18] MEDS: NORCO 5/325 PO PRN ×3 (01:52→14:30)
[2017-02-18] MEDS: MOTRIN PO SCH (01:52)
[2017-02-18] MEDS ORDERED: M-M-R II VACCINE SUB-Q ONE (03:06)
[2017-02-18] MEDS ORDERED: BOOSTRIX IM ONE (06:00)
--- NOTE | 2017-02-18 07:21 | Progress Note ---
Assessment and Plan PPD# 1 s/p -Doing well P: -Continue routine care -Anticipate discharge in 24-48 hours - Patient Problems (1) (normal spontaneous vaginal delivery) Current Visit: Yes Status: Acute Subjective - Subjective Date of service: 02/18/17 Principal diagnosis: PPD# 1 Interval history: Patient seen and examined, stable doing well. No issues Patient reports: appetite normal, voiding normally, pain well controlled, flatus , ambulating normally, no dizzy ambulation, no nauseated : doing well Objective - Vital Signs Latest vital signs: Vital Signs Temp Pulse Resp BP 02/18/17 00:00 98.6 F 71 16 123/73 02/17/17 20:09 18 02/17/17 16:44 98.6 F 84 20 126/90 02/17/17 12:47 98.1 F 80 20 130/84 02/17/17 08:35 99.4 F 76 18 128/70 Intake and Output 02/17/17 02/18/17 02/18/17 22:59 06:59 14:59 Intake Total 240 1100 Balance 240 1100 Intake: Oral 240 550 Intake, Free Water 550 Other: Total, Intake Amount 240 250 # Voids Void 1 - Exam Abdomen: Present: normal appearance, soft. Absent: distention, tenderness, guarding, rigidity Uterus: Present: fundal height below umbilicus. Absent: tenderness Extremities: Present: normal - Labs Labs: Abnormal lab results 02/17/17 Range/Units 16:48 Hgb 8.8 L (10.1-14.3) gm/dl Hct 28.4 L (30.3-42.9) %
--- NOTE | 2017-02-18 07:23 | Discharge Summary ---
Providers - Providers Date of Admission: 02/15/17 14:52 Date of discharge: 02/19/17 Attending physician: CRISTAL GILMORE Primary care physician: CRISTAL GILMORE Hospitalization Reason for admission: observation Delivery: Episiotomy: none Laceration: none Other procedures: none complications: none Discharge diagnosis: IUP at term delivered baby: female Condition at discharge: Good Disposition: DC-01 TO HOME OR SELFCARE - Discharge Diagnoses (1) (normal spontaneous vaginal delivery) Status: Acute Plan - Provider Discharge Summary Activity: no sex for 6 weeks, no heavy lifting 4 weeks, no strenuous exercise Diet: routine Additional instructions: [] Smoking cessation referral if applicable(refer to patient education folder for contact #) [] Refer to [facility] Booklet Call your doctor immediately for: * Fever > 100.5 * Heavy vaginal bleeding ( >1 pad per hour) * Severe persistent headache * Shortness of breath * Reddened, hot, painful area to leg or breast * Drainage or odor from incision. * Keep incision clean and dry at all times and follow doctor's instructions regarding bathing/showering - Follow up plan Follow up: CRISTAL GILMORE MD [Primary Care Provider] - 6 Weeks
[2017-02-18] MEDS: PRENATAL VITAMIN PO SCH (09:45)
[2017-02-18] MEDS: COLACE PO SCH (09:45)
[2017-02-18 14:31] VITALS: BP 137/79
== END 2017-02-18 15:00 | disposition home or self-care (01) | DRG 775 ==
LOC: TRG 14:51 → LD 14:52 → OB 02-17 05:42
PROVIDERS: ADMIT Obstetrics & Gynecology; ATTEND Obstetrics & Gynecology
PROC: 3E0234Z Introduction of Serum, Toxoid and Vaccine into Muscle, Percutaneous Approach (ICD-10-PCS; 2017-02-15)
PROC: 10E0XZZ Delivery of Products of Conception, External Approach (ICD-10-PCS; principal; 2017-02-17)
PROC: 3E033VJ Introduction of Other Hormone into Peripheral Vein, Percutaneous Approach (ICD-10-PCS; 2017-02-17)
PROC: 00HU33Z Insertion of Infusion Device into Spinal Canal, Percutaneous Approach (ICD-10-PCS; 2017-02-17)
PROC: 3E0R3CZ (ICD-10-PCS; 2017-02-17)
PROC: 4A033R1 Measurement of Arterial Saturation, Peripheral, Percutaneous Approach (ICD-10-PCS; 2017-02-17)
DX: O42.92 Full-term premature rupture of membranes, unspecified as to length of time between rupture and onset of labor (principal); O69.1XX0 Labor and delivery complicated by cord around neck, with compression, not applicable or unspecified; O99.824 Streptococcus B carrier state complicating childbirth; Z37.0 Single live birth; Z3A.39 39 weeks gestation of pregnancy
CPT/HCPCS: 36415; 81001; 82565; 82803; 83615; 84450; 84460; 84550; 85014; 85018; 85027; 86850; 86900; 86901; 88307; 90471; 90715; 99211; G0463; J0290; J1200; J2405; J2590; J3010; J7120

== ENCOUNTER 2018-07-14 11:43 | Outpatient (CLI) | payer MEDICAID ==
[2018-07-14 12:40] LABS: Bacteria,Urine 2+ /HPF (Negative); Bilirubin,Urine NEG (Negative); Blood,Urine MOD (Negative); Color,Urine Straw (Yellow); Protein,Urine <15 mg/dL mg/dL (Negative); Urobilinogen,Urine < 2.0 mg/dL (<2.0)
[2018-07-14] MEDS ORDERED: LACTATED RINGERS 500 ML IV ONE (13:00)
[2018-07-14 14:05] LABS: Hemoglobin 12.3 gm/dl (10.1-14.3); Mean Corpuscular HGB Conc 32 % (30-34); Mean Corpuscular Volume 79 fl (79-97); Platelet Count 252 K/mm3 (140-440); Red Blood Count 4.81 M/mm3 (3.65-5.03); Red Cell Distribution Width 14.2 % (13.2-15.2)
[2018-07-14 14:14] LABS: Alanine Aminotransferase 26 units/L (7-56); Uric Acid 6.7 mg/dL (3.5-7.6)
[2018-07-14 14:15] VITALS: BP 117/74
== END 2018-07-14 14:41 | disposition home or self-care (01) ==
LOC: TRG 11:43
PROVIDERS: ATTEND Obstetrics & Gynecology
DX: O47.03 False labor before 37 completed weeks of gestation, third trimester (principal); Z3A.37 37 weeks gestation of pregnancy; Z90.49 Acquired absence of other specified parts of digestive tract
CPT/HCPCS: 36415; 59025; 81001; 82565; 83615; 84450; 84460; 84550; 85027; 96360; J7120

== ENCOUNTER 2018-07-24 04:35 | Inpatient (IN) | payer MEDICAID ==
[2018-07-24] MEDS ORDERED: AMPICILLIN/NS 2 GM/100 ML 2 GM/100 ML BAG IV ONE (05:20)
[2018-07-24] MEDS ORDERED: BRETHINE SUB-Q PRN ×2 (05:20→10:48)
[2018-07-24] MEDS ORDERED: BRETHINE IVP PRN ×2 (05:20→10:48)
[2018-07-24] MEDS ORDERED: MINERAL OIL PO PRN ×2 (05:20→10:48)
[2018-07-24] MEDS ORDERED: LACTATED RINGERS 1,000 ML IV SCH ×2 (06:00→11:00)
[2018-07-24] MEDS ORDERED: PITOCin/NS 20 UNIT/1000ML DRIP 20 UNITS/1,000 ML BAG IV SCH ×3 (06:00→12:00)
[2018-07-24 06:52] LABS: Hemoglobin 12.2 gm/dl (10.1-14.3); Mean Corpuscular HGB Conc 32 % (30-34); Mean Corpuscular Volume 80 fl (79-97); Platelet Count 224 K/mm3 (140-440); Red Blood Count 4.76 M/mm3 (3.65-5.03); Red Cell Distribution Width 15.3 % (13.2-15.2)
[2018-07-24] MEDS ORDERED: NARCAN 2 MG/2 ML IV PRN (07:48)
--- NOTE | 2018-07-24 07:48 | Anesthesia Consultation ---
Anesthesia Consult and Med Hx Date of service: 07/24/18 - Airway Anesthetic Teeth Evaluation: Good ROM Head & Neck: Adequate Mental/Hyoid Distance: Adequate Mallampati Class: Class II Intubation Access Assessment: Probably Good - Pre-Operative Health Status ASA Pre-Surgery Classification: ASA2 Proposed Anesthetic Plan: Epidural, Spinal - Pulmonary Hx Asthma: No COPD: No Hx Pneumonia: No - Cardiovascular System Hx Hypertension: No - Central Nervous System Hx Seizures: No Hx Psychiatric Problems: No - Endocrine Hx Renal Disease: No Hx End Stage Renal Disease: No Hx Hypothyroidism: No Hx Hyperthyroidism: No - Hematic Hx Anemia: No Hx Sickle Cell Disease: No - Other Systems Hx Alcohol Use: No Hx Obesity: Yes
[2018-07-24] MEDS ORDERED: fentaNYL-BUPIV 2 MCG/ML-0.125% 200 MCG/100 ML BAG EPIDURAL SCH (08:00)
[2018-07-24] MEDS ORDERED: AMPICILLIN/NS 1 GM/50 ML 1 GM/50 ML BAG IV SCH ×2 (09:00→15:00)
[2018-07-24] MEDS ORDERED: ZOFRAN ONE (10:44)
--- NOTE | 2018-07-24 10:44 | History and Physical Report ---
History of Present Illness Date of examination: 07/24/18 Date of admission: 07/24/18 05:48 Chief complaint: Labor History of present illness: Pt is a32yo BF EDC 07/30/18; EGA 39 0/7 weeks presents to L&D complaining of RUC's q 2-4 mins. She received care at [facility] since 6 weeks and course has been unremarkable. records are available and GBS is Positive. 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 Social history: no significant social history, single - Obstetrical History Expected Date of Delivery: 07/30/18 Actual Gestation: 39 Week(s) 1 Day(s) : 3 Medications and Allergies Allergies Allergy/AdvReac Type Severity Reaction Status Date / Time No Known Allergies Allergy Verified 07/22/18 19:27 Home Medications Medication Instructions Recorded Confirmed Last Taken Type Multivitamin with Iron 1 each PO DAILY #30 tablet 02/18/17 07/14/18 Unknown Rx [Multivitamins with Iron] Active Meds: Active Medications Ephedrine Sulfate (Ephedrine Sulfate) 10 mg IV Q2M PRN PRN Reason: Hypotension Last Admin: 07/24/18 08:14 Dose: 10 mg Documented by: Ephedrine Sulfate (Ephedrine Sulfate) 10 mg IV Q2M PRN PRN Reason: Hypotension Lactated Ringer's (Lactated Ringers) 1,000 mls @ 125 mls/hr IV DIRECT BRANDIE Last Admin: 07/24/18 07:42 Dose: 125 mls/hr Documented by: Oxytocin/Sodium Chloride (Pitocin/Ns 20 Unit/1000ml Drip) 20 units in 1,000 mls @ 125 mls/hr IV DIRECT BRANDIE Ampicillin Sodium (Ampicillin/Ns 1 Gm/50 Ml) 1 gm in 50 mls @ 100 mls/hr IV Q4H BRANDIE Fentanyl/Bupivacaine/Sodium Chlor (Fentanyl-Bupiv 2 Mcg/Ml-0.125%) 200 mcg in 100 mls @ 12 mls/hr EPIDURAL TITR BRANDIE; Protocol Last Admin: 07/24/18 08:36 Dose: 12 mls/hr Documented by: Mineral Oil (Mineral Oil) 30 ml PO QHS PRN PRN Reason: Constipation Naloxone HCl (Narcan 2 Mg/2 Ml) 0.2 mg IV Q5M PRN PRN Reason: Respiratory sedation Terbutaline Sulfate (Brethine) 0.25 mg SUB-Q ONCE PRN PRN Reason: Hyperstimulation/Hypertonicity Terbutaline Sulfate (Brethine) 0.25 mg IVP ONCE PRN PRN Reason: Hyperstimulation/Hypertonicity Review of Systems All systems: negative - Vital Signs Vital signs: Vital Signs Pulse BP 85 125/80 07/24/18 04:56 07/24/18 04:56 Temp Pulse Resp BP Pulse Ox 98.8 F 130 H 22 114/61 100 07/24/18 07:29 07/24/18 10:35 07/24/18 07:29 07/24/18 10:29 07/24/18 10:35 - Physical Exam Breasts: Positive: deferred Cardiovascular: Regular rate Lungs: Positive: Clear to auscultation Abdomen: Positive: normal appearance Genitourinary (Female): Positive: normal external genitalia Vagina: Positive: normal moisture Uterus: Positive: enlarged Extremities: Positive: normal - Obstetrical FHR: category 1 Uterine Contraction Monitor Mode: External Cervical Dilatation: 6 (per nurse) Cervical Effacement Percentage: 80 (per nurse) station: -2 Uterine Contraction Pattern: Regular Uterine Tone Measurement Phase: Contraction Uterine Contraction Intensity: Moderate Results Result Diagrams: 07/24/18 06:17 Abnormal lab results 07/24/18 Range/Units 06:17 WBC 11.7 H (4.5-11.0) K/mm3 MCH 26 L (28-32) pg RDW 15.3 H (13.2-15.2) % All other labs normal. Assessment and Plan - Patient Problems (1) 39 weeks gestation of Onset Date: 07/24/18 Current Visit: No Status: Acute Plan to address problem: A: IUP @ 39 1/7 weeks in labor GBS Positive P: Admit to L&D for expectant vaginal delivery IV Ampicillin
[2018-07-24] MEDS ORDERED: XYLOCAINE 2% INFILTRATI ONE (10:48)
[2018-07-24] MEDS ORDERED: PITOCin/NS 30 UNIT/500ML 30 UNITS/500 ML BAG IV SCH ×2 (11:00)
--- NOTE | 2018-07-24 11:07 | Procedure Note ---
OB Delivery Note - Delivery Date of Delivery: 07/24/18 Surgeon: CRISTAL GILMORE Estimated blood loss: 100cc - Vaginal Delivery presentation: vertex Delivery position: OA Intrapartum events: none Delivery induction: none Delivery monitor: external FHT, external uterine Route of delivery: Delivery placenta: spontaneous Delivery cord: 3 umbilical vessels Episiotomy: none Delivery laceration: none Anesthesia: epidural Delivery comments: delivered OA and placed on Mom's chest for [id number] bonding and delayed cord clamping, cut by Dad - Infant A at 1 minute: 8 at 5 minutes: 9 Infant Gender: Female (3553gms)
[2018-07-24] MEDS ORDERED: TYLENOL PO PRN (11:08)
[2018-07-24] MEDS ORDERED: LANSINOH TP PRN (11:08)
[2018-07-24] MEDS ORDERED: ZOFRAN IV PRN (11:08)
[2018-07-24] MEDS ORDERED: DULCOLAX PR PRN (11:08)
[2018-07-24] MEDS ORDERED: BENADRYL PO PRN (11:08)
[2018-07-24] MEDS ORDERED: TUCKS PAD TP PRN (11:08)
[2018-07-24] MEDS ORDERED: MILK OF MAGNESIA PO PRN (11:08)
[2018-07-24] MEDS ORDERED: PHENERGAN PR PRN (11:08)
[2018-07-24] MEDS ORDERED: SODIUM CHLORIDE FLUSH SYRINGE 10 ML IV NR (12:00)
[2018-07-24] MEDS: IBUPROFEN PO SCH ×2 (14:13→21:21)
[2018-07-24] MEDS: NORCO 5/325 PO PRN (15:30)
[2018-07-24] MEDS: COLACE PO SCH (21:21)
[2018-07-24] MEDS: FEOSOL PO SCH (21:21)
[2018-07-24 22:47] LABS: Hematocrit 32.5 % (30.3-42.9); Hemoglobin 10.6 gm/dl (10.1-14.3)
[2018-07-25] MEDS: NORCO 5/325 PO PRN (00:10)
[2018-07-25] MEDS: PHENERGAN PO PRN (02:07)
[2018-07-25] MEDS: IBUPROFEN PO SCH ×3 (05:42→17:47)
[2018-07-25] MEDS ORDERED: M-M-R II VACCINE SUB-Q ONE (06:00)
[2018-07-25] MEDS ORDERED: BOOSTRIX IM ONE (06:00)
--- NOTE | 2018-07-25 08:56 | Progress Note ---
Assessment and Plan - Patient Problems (1) 39 weeks gestation of Onset Date: 07/24/18 Current Visit: No Status: Resolved (2) (normal spontaneous vaginal delivery) Onset Date: 07/25/18 Current Visit: No Status: Resolved Plan to address problem: A: S/P - PPD #1 Doing well Asymptomatic anemia - stable P: May go home today. Subjective - Subjective Date of service: 07/25/18 Principal diagnosis: s/p - PPD #1 Interval history: Pt is feeling well without complaints. Bleeding improved. Patient reports: appetite normal, voiding normally, pain well controlled, flatus, ambulating normally, no dizzy ambulation, no nauseated : doing well, nursing well, bottle feeding Objective - Vital Signs Latest vital signs: Vital Signs Temp Pulse Resp BP BP Pulse Ox 07/25/18 08:36 98.6 F 67 18 110/66 07/25/18 00:00 98.2 F 70 18 128/78 07/24/18 17:20 98.2 F 78 18 116/75 07/24/18 16:00 98.6 F 77 18 130/79 07/24/18 13:28 98.3 F 81 16 136/77 98 07/24/18 12:29 77 149/84 07/24/18 12:14 89 151/76 07/24/18 12:11 98.3 F 18 07/24/18 11:59 81 149/88 07/24/18 11:44 81 143/89 07/24/18 11:29 84 134/80 07/24/18 11:14 86 135/86 07/24/18 11:03 85 128/71 07/24/18 10:58 52 L 50 L 07/24/18 10:55 95 H 99 07/24/18 10:50 94 H 98 07/24/18 10:45 86 100 07/24/18 10:40 98 H 98 07/24/18 10:35 130 H 100 07/24/18 10:29 79 114/61 100 07/24/18 10:24 81 100 07/24/18 10:21 99 H 0 L 07/24/18 10:19 82 100 07/24/18 10:14 80 100 07/24/18 10:09 80 100 07/24/18 10:04 79 100 07/24/18 10:02 31 L 87 07/24/18 09:59 83 116/60 100 07/24/18 09:54 77 100 07/24/18 09:49 91 H 99 07/24/18 09:44 80 109/65 100 07/24/18 09:39 75 100 07/24/18 09:38 104 H 0 L 07/24/18 09:34 76 100 07/24/18 09:29 74 121/57 100 07/24/18 09:24 97 H 100 07/24/18 09:18 75 100 07/24/18 09:14 76 116/60 07/24/18 09:13 69 100 07/24/18 09:08 75 100 07/24/18 09:03 79 100 07/24/18 08:59 83 117/65 07/24/18 08:58 92 H 100 07/24/18 08:56 46 L 86 Intake and Output 07/24/18 07/25/18 07/25/18 22:59 06:59 14:59 Intake Total 120 240 240 Output Total 1200 Balance -1080 240 240 Intake: Oral 120 240 240 Output: Urine 1200 Indwelling Catheter 600 Void 600 Other: Total, Intake Amount 120 240 240 Total, Output Amount 600 # Voids Indwelling Catheter 1 Void 1 1 - Exam Abdomen: Present: normal appearance, soft Uterus: Present: normal, firm, fundal height below umbilicus Extremities: Present: normal - Labs Labs: Abnormal lab results 07/24/18 Range/Units 06:17 Crossmatch See Detail Laboratory Tests 07/24/18 07/24/18 07/24/18 06:17 06:17 06:17 WBC 11.7 H RBC 4.76 Hgb 12.2 Hct 38.0 MCV 80 MCH 26 L MCHC 32 RDW 15.3 H Plt Count 224 RPR Nonreactive Blood Type O POSITIVE Antibody Screen Positive Antibody Identification Anti-E Crossmatch See Detail 07/24/18 22:36 WBC RBC Hgb 10.6 Hct 32.5 MCV MCH MCHC RDW Plt Count RPR Blood Type Antibody Screen Antibody Identification Crossmatch
--- NOTE | 2018-07-25 08:57 | Discharge Summary ---
Providers - Providers Date of Admission: 07/24/18 05:48 Date of discharge: 07/25/18 Attending physician: CRISTAL GILMORE 07/24/18 05:24 Consult to Physician [CONS] Routine Comment: Consulting Provider: SUGEY EPSTEIN Physician Instructions: may have epidural Reason For Exam: epidural Primary care physician: CRISTAL GILMORE Hospitalization Reason for admission: active labor, IUP at term Delivery: Episiotomy: none Laceration: none Other procedures: none complications: none Discharge diagnosis: IUP at term delivered [place] baby: female Hospital course: Unremarkable. Condition at discharge: Good Disposition: DC-01 TO HOME OR SELFCARE - Discharge Diagnoses (1) 39 weeks gestation of Status: Resolved (2) (normal spontaneous vaginal delivery) Status: Resolved Plan - Discharge Medications Prescriptions: Ferrous Sulfate [Feosol 325 MG tab] 325 mg PO BID #60 tablet Ibuprofen [Motrin 600 MG tab] 600 mg PO Q6H #30 tablet Vit-Fe Fumar-FA [ Vitamin] 1 each PO QDAY #30 tablet - Provider Discharge Summary Activity: routine, no sex for 6 weeks, no heavy lifting 4 weeks, no strenuous exercise Diet: routine Instructions: routine Additional instructions: [] Smoking cessation referral if applicable(refer to patient education folder for contact #) [] Refer to [facility] Booklet Call your doctor immediately for: * Fever > 100.5 * Heavy vaginal bleeding ( >1 pad per hour) * Severe persistent headache * Shortness of breath * Reddened, hot, painful area to leg or breast * Drainage or odor from incision. * Keep incision clean and dry at all times and follow doctor's instructions regarding bathing/showering - Follow up plan Follow up: CRISTAL GILMORE MD [Primary Care Provider] - 6 Weeks PRABHA BELLA CNM [Advanced Practice Nurse] - 6 Weeks
[2018-07-25] MEDS ORDERED: PRENATAL VITAMIN PO SCH (10:00)
[2018-07-25] MEDS ORDERED: AFLURIA QUAD 2018-2019 SYRINGE IM ONE (10:00)
[2018-07-25] MEDS: FEOSOL PO SCH ×2 (10:20→22:02)
[2018-07-25] MEDS: COLACE PO SCH ×2 (10:20→22:03)
[2018-07-26] MEDS: IBUPROFEN PO SCH (00:32)
[2018-07-26] MEDS: NORCO 5/325 PO PRN (04:32)
[2018-07-26] MEDS: PHENERGAN PO PRN (04:45)
[2018-07-26 08:46] VITALS: BP 136/88
== END 2018-07-26 11:59 | disposition home or self-care (01) | DRG 775 ==
LOC: TRG 04:35 → LD 05:48 → OB 13:12
PROVIDERS: ADMIT Obstetrics & Gynecology; ATTEND Obstetrics & Gynecology
PROC: 10E0XZZ Delivery of Products of Conception, External Approach (ICD-10-PCS; principal; 2018-07-24)
PROC: 3E0R3BZ Introduction of Anesthetic Agent into Spinal Canal, Percutaneous Approach (ICD-10-PCS; 2018-07-24)
PROC: 00HU33Z Insertion of Infusion Device into Spinal Canal, Percutaneous Approach (ICD-10-PCS; 2018-07-24)
PROC: 3E0234Z Introduction of Serum, Toxoid and Vaccine into Muscle, Percutaneous Approach (ICD-10-PCS; 2018-07-25)
DX: O99.824 Streptococcus B carrier state complicating childbirth (principal); E66.9 Obesity, unspecified; O99.214 Obesity complicating childbirth; O90.81 Anemia of the puerperium; D64.9 Anemia, unspecified; Z23 Encounter for immunization; Z3A.39 39 weeks gestation of pregnancy; Z37.0 Single live birth
CPT/HCPCS: 36415; 59025; 81001; 82565; 83615; 84450; 84460; 84550; 85014; 85018; 85027; 86592; 86850; 86870; 86900; 86901; 86922; 90471; 90686; 90715; G0378; G0008; J0290; J2405; J2590; J7120; Q0169